=== PATIENT | female | born 1990 | race Caucasian/White ===

== ENCOUNTER 2019-06-08 13:00 | Outpatient (RCR) | payer BC, SELFPAY ==
--- NOTE | 2019-04-07 17:23 | PTOPEVAL ---
PHYSICAL THERAPY EVALUATION AND PLAN OF CARE Thank you for referring this patient to [facility] [place] [facility] [place]. Beverly will be seen 2x/week for 4 weeks in PT to address abnormal gait pattern, decreased strength, decreased ROM, and edema. Please review, sign, date and return this plan of care MIGUEL. I agree with and certify that the following plan of care is medically necessary. Referring Physician Date Attending Provider: Dallas Woodard MD Evaluation Outpatient Past Medical History Gastrointestinal History Hx Irritable Bowel Yes Musculoskeletal History Hx Fractures Yes: LT ANKLE, RT WRIST FX, RT ARM FX HEENT History Hx Other HEENT Disorders Yes: WISDOM TEETH SURGICALLY REMOVED Evaluation Information Problem Diagnosis left ORIF Onset 02/07/2019 Cause fall down 5 stairs Subjective Information Beverly is here today 2 months Query Text:As Reported By Patient/ s/p left ankle ORIF. She was Family non-weightbearing until February 22 and wore a walking boot at that time. She ceased using walking boot March 24, 2019. She returned to work on 03/24/2019. she getting next month and would like to be able to walk without a limp and to be able to dance without pain in the ankle. 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 ) Self Report Pain Assessment Left Ankle(s) Reported Pain Level 2 Pain Description Soreness,Tightness Radicular Pain Location stiffness/ Pain Frequency Acute,Intermittent Current Pain Intensity 2 Lowest Pain Intensity 0 Greatest Pain Intensity 5 Other Pain Aggravating Factors limping Pain Behaviors None Pain Relief Interventions Used By Ice,Inactivity/Rest Patient Interventions Used By Clinicians Exercise,Joint Mobilization Ankle/Foot Range of Motion Left Ankle Dorsiflextion With Knee Extension -10 Range of Motion - Active Ankle Plantarflexion Range of Motion - 41 Active Query Text: Ankle Eversion Range of Motion - Active 14 Ankle Inversion Range of Motion - Active 21 Ankle/Toe Range of Motion Limitations Edema,Soft Tissue Restriction Hip Strength Left Hip Flexion Strength 5 Normal Hip Extension Strength 4 Good Hip Abduction Strength 4- Good - Ankle Strength Left
--- NOTE | 2019-05-06 08:42 | PTOPEVAL ---
PHYSICAL THERAPY PLAN OF CARE UPDATE AND PROGRESS REPORT Thank you for referring this patient to [facility]. I recommend Beverly continue physical therapy 2x/week for 3-4 weeks to progress ankle ROM for gait and stair negotiation. Please review, sign, date and return this plan of care MIGUEL. I agree with and certify that the following plan of care is medically necessary. Referring Physician Date Attending Provider: Dallas Woodard MD Diagnosis left ORIF Onset 02/07/2019 Cause fall down 5 stairs Subjective Information Beverly is here today 3 months Query Text:As Reported By Patient/ s/p left ankle ORIF. Reports Family she is feeling really good except with some cautiousness and oddness when walking down stairs. Understands that her ankle will swell on occasion. Left Ankle(s) Reported Pain Level 0 Pain Description Tightness Pain Behaviors None Ankle/Foot Range of Motion Left Ankle Dorsiflextion With Knee Extension 2 Range of Motion - Active Ankle Plantarflexion Range of Motion - 48 Active Query Text: Ankle Eversion Range of Motion - Active 20 Ankle Inversion Range of Motion - Active 26 Hip Strength Left Hip Flexion Strength 5 Normal Hip Extension Strength 4 Good Hip Abduction Strength 4+ Good + Ankle Strength Left Ankle Dorsiflexion Strength 5 Normal Ankle Eversion Strength 5 Normal Ankle Inversion Strength 5 Normal Ankle Strength Comments 10/20 unilateral left heel raises Muscle Length Testing Left Hamstring Length -40 Query Text:(90 - 90 Position) Right Hamstring Length -30 Query Text:(90 - 90 Position) Extremity Circumference Assessment Circumference Assessment Location Left Body Part Ankle Site Descriptor ([place]) figure 8 Circumference (cm) 55 Stair Climbing Assessment Number of Steps Climbed (Steps) 4 Number of Repetitions (Repetitions) 3 Technique Alternating Steps Stair Climbing Direction Both Up and Down Stair Climbing Comments left heel lifts off step earlier compared to contralateral side (due to limited DF) Clinical Summary Beverly is a 29 yo female presenting to outpatient physical therapy 3 months s/p left ankle ORIF falling a
--- NOTE | 2019-06-08 14:05 | PTOPEVAL ---
PHYSICAL THERAPY DISCHARGE REPORT Thank you for referring Beverly to [facility]. I recommend discharge from PT at this time. Please review, sign, date and return this plan of care MIGUEL. I agree with and certify that the following plan of care is medically necessary. Referring Physician Date Attending Provider: Dallas Woodard MD Diagnosis left ORIF Onset 02/07/2019 Cause fall down 5 stairs Subjective Information Beverly presents today Query Text:As Reported By Patient/ reporting no pain in the left Family ankle. Reports that the ankle will get stiff if she sits longer than 2 hours, but otherwise she is able to function as she wants. Pain Assessment Timing of Pain Assessment Timing of Pain Assessment Pre-Treatment Pain Scale Pain Scale Used Numeric (1 - 10) Self Report Pain Assessment Left Ankle(s) Reported Pain Level 0 Pain Description Tightness Pain Score Pain Score 0: Self Report Lower Extremity Range of Motion Ankle/Foot Range of Motion Left Ankle Dorsiflextion With Knee Extension 4 Range of Motion - Active Ankle Plantarflexion Range of Motion - 55 Active Query Text: Ankle Eversion Range of Motion - Active 20 Ankle Inversion Range of Motion - Active 30 Ankle/Toe Range of Motion Limitations Edema Lower Extremity Muscle Strength Testing Hip Strength Left Hip Flexion Strength 5 Normal Hip Extension Strength 4 Good Hip Abduction Strength 4+ Good + Ankle Strength Left Ankle Dorsiflexion Strength 5 Normal Ankle Eversion Strength 5 Normal Ankle Inversion Strength 5 Normal Ankle Strength Comments 19/20 unilateral left heel raises Muscle Length Testing Muscle Length Testing Left Hamstring Length -25 Query Text:(90 - 90 Position) Right Hamstring Length -25 Query Text:(90 - 90 Position) Extremity circumference Location Left Body Part Ankle Site Descriptor ([place]) figure 8 Circumference (cm) 54 Noninvolved Side Circumference (cm) 54 PT Clinical Summary Beverly has participated in 14 visits of physical therapy. She has met or nearly met her functional goals. She continues to present with less than normal ankle dorsiflexion. There is some discoloring over the medial
== END 2019-06-10 14:41 | disposition home or self-care (01) ==
LOC: ANHPT 13:00
PROVIDERS: Visit Provider Orthopaedic Surgery
DX: Z47.89 Encounter for other orthopedic aftercare (principal); Z87.81 Personal history of (healed) traumatic fracture
CPT/HCPCS: 29581; 97016; 97110; 97140; 97161